=== PATIENT | female | born 1955 | race American Indian/Alaskan Native ===

== ENCOUNTER 2017-04-30 18:02 | Emergency (ER) | payer BC ==
[2017-04-30] MEDS ORDERED: NORCO 5/325 PO ONE (22:39)
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
[2017-04-30] MEDS ORDERED: ROBAXIN PO ONE (23:00)
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
[2017-05-01] MEDS ORDERED: ZESTRIL PO ONE (01:27)
[2017-05-01 02:21] VITALS: BP 154/99
== END 2017-05-01 02:24 | disposition home or self-care (01) ==
LOC: ED 18:02
DX: S09.90XA Unspecified injury of head, initial encounter (principal); S40.022A Contusion of left upper arm, initial encounter; I10 Essential (primary) hypertension; V89.2XXA Person injured in unspecified motor-vehicle accident, traffic, initial encounter; Y92.488 Other paved roadways as the place of occurrence of the external cause; Y93.89 Activity, other specified; Y99.9 Unspecified external cause status
CPT/HCPCS: 70450; 70486; 72040